=== PATIENT | female | born 1945 | race African-American/Black ===

== ENCOUNTER 2018-11-29 13:03 | Emergency (ER) | payer MEDICARE ==
--- NOTE | 2018-11-29 13:46 | UC ---
UC General HPI - HPI Summary HPI Summary: 73-year-old woman comes in with a chief complaint of fatigue. One week ago she had a fever was diagnosed with the UTI by her primary care doctor and was on sulfa-based drug probably Bactrim for 5 days. She is no longer taking the Bactrim. She had dysuria initially she no longer has any dysuria. Denies any suprapubic pain or flank pain. He does not believe there was a urine culture done on her initial urine. She is been fatigued since that time. She has been itching when she was on the Bactrim. Denies any rash. She's been nauseous not eating much. She reports that her stools are dark colored during this past one week. Has not seen any blood in the stool. She is on Plavix. No complaint of any upper respiratory tract infection symptoms no chest congestion no shortness of breath. No pedal edema. - History of Current Complaint Chief Complaint: UCGeneralIllness Stated Complaint: TIRED/BODY ACHES Time Seen by Provider: 11/29/18 13:22 Pain Intensity: 0 - Allergy/Home Medications Allergies/Adverse Reactions: Allergies Allergy/AdvReac Type Severity Reaction Status Date / Time Sulfa (Sulfonamide Allergy Mild Itching Verified 11/29/18 13:17 Antibiotics) metronidazole [From Flagyl] Allergy Unknown Verified 11/29/18 13:17 Reaction Details tetracycline Allergy Unknown Verified 11/29/18 13:17 Reaction Details Home Medications: Home Medications Atorvastatin Calcium [Lipitor] 40 mg PO DAILY 11/29/18 [History Confirmed ] Estradiol (NF) 0.5 mg PO DAILY 11/29/18 [History Confirmed 11/29/18] PMH/Surg Hx/FS Hx/Imm Hx Previously Healthy: Yes Endocrine History: Dyslipidemia Cardiovascular History: Hypertension GI/ History: Gastroesophageal Reflux Neurological History: TIA - Surgical History Surgical History: Yes Surgery Procedure, Year, and Place: PARTIAL HYSTERECTOMY - Family History Known Family History: Positive: Unknown - Social History Alcohol Use: None Substance Use Type: None Smoking Status (MU): Never Smoked Tobacco Review of Systems All Other Systems Reviewed And Are Negative: Yes Constitutional: Positive: Fever, Fatigue Skin: Positive: Negative. Negative: Rash Eyes: Positive: Negative ENT: Positive: Negative Respiratory: Positive: Negative Cardiovascular: Positive: Negative Gastrointestinal: Positive: Other - SEE HPI Genitourinary: Positive: Dysuria Motor: Positive: Negative Neurovascular: Positive: Negative Musculoskeletal: Positive: Negative Neurological: Positive: Negative Psychological: Positive: Negative Is Patient Immunocompromised?: No Physical Exam Triage Information Reviewed: Yes Appearance: Well-Appearing, No Pain Distress, Well-Nourished Vital Signs: Initial Vital Signs Temp 97.2 F 11/29/18 13:11 Pulse 70 11/29/18 13:11 Resp 16 11/29/18 13:11 BP 125/67 11/29/18 13:11 Pulse Ox 97 11/29/18 13:11 Vital Signs Reviewed: Yes Eye Exam: Normal Eyes: Positive: Conjunctiva Clear ENT: Positive: Pharynx normal Neck: Positive: Supple Respiratory: Positive: Lungs clear, Normal breath sounds, No respiratory distress Cardiovascular: Positive: RRR Abdomen Description: Positive: Nontender, Soft. Negative: CVA Tenderness (R), CVA Tenderness (L) Bowel Sounds: Positive: Present Musculoskeletal: Positive: Strength Intact, ROM Intact, No Edema, Other: - NO CALF TENDERNESS Neurological: Positive: Alert, Muscle Tone Normal Psychological Exam: Normal Psychological: Positive: Age Appropriate Behavior Skin Exam: Normal Diagnostics - EKG Cardiac Rate: Bradycardia - AT 1456 Cardiac Rhythm: Sinus: Normal - 54BPM Ectopy: None ST Segment: Normal Summary of EKG Findings: PROLONGER SC INTERVAL 248 Course/Dx - Course Course Of Treatment: Patient's EKG is sinus bradycardia 54 bpm. It has a prolonged SC interval of 248. I do not see any ischemic changes. Overall the patient's felt fatigued ever since one week ago when she had a fever and was treated for UTI with Bactrim. One week ago she also had an episode of chest pain. Her stools have been dark for this past one week. Different possibilities was heart injury one week ago, GI bleed with anemia, dehydration or other causes of fatigue. Because we cannot get timely labs here and we cannot evaluate with a troponin I recommended further evaluation emergency Department. Patient's son is driving her to the emergency department. - Diagnoses Provider Diagnosis: Fatigue, Chest pain Discharge - Sign-Out/Discharge Documenting (check all that apply): Patient Departure All imaging exams completed and their final reports reviewed: No Studies - Discharge Plan Condition: Stable Disposition: HOME-RECOMMEND TO ED Patient Education Materials: Chest Pain (ED), Fatigue (ED) Referrals: Marce Chavira MD [Primary Care Provider] - Additional Instructions: GO DIRECTLY TO THE EMERGENCY DEPARTMENT FOR FURTHER EVALUATION. - Billing Disposition and Condition Condition: STABLE Disposition: Home-Recommend to ED
[2018-11-29 14:12] VITALS: BP 143/68
== END 2018-11-29 15:00 | disposition home health service (06) ==
LOC: UCEAST 13:03
DX: R53.83 Other fatigue (principal); R07.89 Other chest pain; R50.9 Fever, unspecified; R30.0 Dysuria; R00.1 Bradycardia, unspecified; E78.5 Hyperlipidemia, unspecified; I10 Essential (primary) hypertension; K21.9 Gastro-esophageal reflux disease without esophagitis; Z86.73 Personal history of transient ischemic attack (TIA), and cerebral infarction without residual deficits; Z88.1 Allergy status to other antibiotic agents; Z88.2 Allergy status to sulfonamides
CPT/HCPCS: 81003; 82272; 93005; 99212; G0463

== ENCOUNTER 2018-11-29 15:27 | Emergency (ER) | payer MEDICARE ==
--- NOTE | 2018-11-29 16:14 | ED ---
Complex/Multi-Sys Presentation - HPI Summary HPI Summary: Pt is a 73 y/o F presenting to the ED with a chief complaint of a slow heart rate. She reports associated fatigue onset one week ago, lightheadedness, and a brief 5 minute episode of L anterior chest pain on 11/23/18. She had been taking Tylenol for a fever that is now resolved, and thought the chest pain may have come from that. She went to urgent care today for the weakness where they did an EKG and instructed her to come to the ED for further evaluation. - History Of Current Complaint Chief Complaint: EDWeakness Time Seen by Provider: 11/29/18 15:59 Hx Obtained From: Patient Onset/Duration: Gradual Onset, Lasting Days, Still Present Timing: Constant, Days Severity Currently: Moderate Severity Initially: Mild Aggravating Factor(s): nothing Alleviating Factor(s): nothing Associated Signs And Symptoms: Positive: Weakness, Chest Pain, Other - lightheadedness, fatigue. Negative: Fever - Allergies/Home Medications Allergies/Adverse Reactions: Allergies Allergy/AdvReac Type Severity Reaction Status Date / Time Sulfa (Sulfonamide Allergy Mild Itching Verified 11/29/18 15:36 Antibiotics) metronidazole [From Flagyl] Allergy Unknown Verified 11/29/18 15:36 Reaction Details tetracycline Allergy Unknown Verified 11/29/18 15:36 Reaction Details Home Medications: Home Medications Ascorbic Acid TAB* [Vitamin C TAB*] 1,000 mg PO DAILY 11/29/18 [History Confirmed 11/29/18] Calcium Carbonate/Vitamin D3 [Calcium 600 + Vit D Tablet] 1 each PO DAILY [History Confirmed 11/29/18] Ferrous Gluconate [Iron 27] 240 mg PO DAILY 11/29/18 [History Confirmed 11/29/18 ] Flaxseed Oil [Hannibal-3 Flaxseed Oil] 1,000 mg PO DAILY 11/29/18 [History Confirmed 11/29/18] Multivitamin [Multivitamins] 1 cap PO DAILY 11/29/18 [History Confirmed 11/29/18 ] Hannibal-3 Fatty Acids/Fish Oil [Fish Oil 1,000 mg Softgel] 1 each PO DAILY [History Confirmed 11/29/18] PMH/Surg Hx/FS Hx/Imm Hx Previously Healthy: Yes Endocrine/Hematology History: Denies: Hx Diabetes, Hx Thyroid Disease Cardiovascular History: Reports: Hx Hypertension Denies: Hx Pacemaker/ICD Respiratory History: Denies: Hx Asthma, Hx Chronic Obstructive Pulmonary Disease (COPD) GI History: Denies: Hx Ulcer History: Denies: Hx Renal Disease Sensory History: Denies: Hx Hearing Aid Neurological History: Reports: Hx Transient Ischemic Attacks (TIA) Psychiatric History: Denies: Hx Panic Disorder - Surgical History Surgery Procedure, Year, and Place: PARTIAL HYSTERECTOMY Infectious Disease History: No Infectious Disease History: Denies: Hx Hepatitis, Hx Human Immunodeficiency Virus (HIV), Traveled Outside the [place] in Last 30 Days - Family History Known Family History: Negative: Renal Disease - Social History Alcohol Use: None Hx Substance Use: No Substance Use Type: Reports: None Hx Tobacco Use: No Smoking Status (MU): Never Smoked Tobacco Review of Systems Positive: Fatigue. Negative: Fever Positive: Chest Pain Positive: Weakness All Other Systems Reviewed And Are Negative: Yes Physical Exam - Summary Physical Exam Summary: Appearance: The patient is well-nourished in no acute distress and in no acute pain. Skin: The skin is warm and dry and skin color reflects adequate perfusion. HEENT: The head is normocephalic and atraumatic. The pupils are equal and reactive. The conjunctivae are clear and without drainage. Nares are patent and without drainage. Mouth reveals moist mucous membranes and the throat is without erythema and exudate. The external ears are intact. The ear canals are patent and without drainage. The tympanic membranes are intact. Neck: The neck is supple with full range of motion and non-tender. There are no carotid bruits. There is no neck vein distension. Respiratory: Chest is non-tender. Lungs are clear to auscultation and breath sounds are symmetrical and equal. Cardiovascular: Heart is regular rate and rhythm. There is no murmur or rub auscultated. There is no peripheral edema and pulses are symmetrical and equal. Abdomen: The abdomen is soft and non-tender. There are normal bowel sounds heard in all four quadrants and there is no organomegaly palpated. Musculoskeletal: There is no back tenderness noted. Extremities are non-tender with full range of motion. There is good capillary refill. There is no peripheral edema or calf tenderness elicited. Neurological: Patient is alert and oriented to person, place and time. The patient has symmetrical motor strength in all four extremities. Cranial nerves are grossly intact. Deep tendon reflexes are symmetrical and equal in all four extremities. Psychiatric: The patient has an appropriate affect and does not exhibit any anxiety or depression. Triage Information Reviewed: Yes Vital Signs On Initial Exam: Initial Vitals Temp Pulse Resp BP Pulse Ox 97.9 F 55 16 146/70 100 11/29/18 15:31 11/29/18 15:31 11/29/18 15:31 11/29/18 15:31 11/29/18 15:31 Vital Signs Reviewed: Yes Diagnostics - Vital Signs Vital Signs Temp Pulse Resp BP Pulse Ox 11/29/18 15:31 97.9 F 55 16 146/70 100 - Laboratory Result Diagrams: 11/29/18 16:24 11/29/18 16:24 Lab Statement: Any lab studies that have been ordered have been reviewed, and results considered in the medical decision making process. - Radiology CXR Radiology Interpretation Completed By: Radiologist Summary of Radiographic Findings: No active cardiopulmonary disease is noted. ED physician has reviewed this report. - EKG 1632 Cardiac Rate: Bradycardia - 55 EKG Rhythm: Sinus Rhythm ST Segment: Normal Ectopy: None Complex Multi-Symp Course/Dx Course Of Treatment: Ms. Barrera presented complaining of feeling weak for a couple of days. She really has no other complaint and denies chest pain or shortness of breath. She was nontoxic in appearance with stable vitals when she arrived. She apparently went to the [facility] and was found to be a bit bradycardic and is not taking any beta blockers. She was kept on a monitor here while workup ensued. Her labs were unremarkable as was EKG and chest x-ray aside from the mild bradycardia. I recommended that we discharged her in stable condition and follow up with her PCP. I don't think anything dangerous is happening. - Diagnoses Provider Diagnoses: Weakness Discharge - Sign-Out/Discharge Documenting (check all that apply): Patient Departure Patient Received Moderate/Deep Sedation with Procedure: No - Discharge Plan Condition: Stable Disposition: HOME Referrals: Richie Duran MD [Primary Care Provider] - Additional Instructions: Please follow up with Dr. Duran next week. Return to the ED with any new or worsening symptoms. - Billing Disposition and Condition Condition: STABLE Disposition: Home - Attestation Statements Document Initiated by Scribe: Yes Documenting Scribe: Diana Celaya Provider For Whom Scribe is Documenting (Include Credential): Stone Richards MD. Scribe Attestation: IDiana, scribed for Stone Richards MD. on 11/30/18 at 0906. Scribe Documentation Reviewed: Yes Provider Attestation: The documentation as recorded by the scribe, Diana Celaya accurately reflects the service I personally performed and the decisions made by me, Stone Richards MD. Status of Scribe Document: Viewed
[2018-11-29 16:40] LABS: Hematocrit 38 % (33-41); Hemoglobin 12.3 g/dL (12.0-16.0); INR 1.07 (0.77-1.02); Mean Corpuscular HGB Conc 32 g/dL (31-36); Mean Corpuscular Hemoglobin 22 pg (27-31); Mean Corpuscular Volume 69 fL (80-97); Mean Platelet Volume 9.1 fL (7.4-10.4); Platelet Count 189 10^3/uL (150-450); Red Blood Count 5.54 10^6 /uL (3.70-4.87); Red Cell Distribution Width 15 % (10.5-15); White Blood Count 3.5 10^3/uL (3.5-10.8)
[2018-11-29 16:49] LABS: Albumin 4.1 g/dL (3.2-5.2); Albumin/Globulin Ratio 1.2 (1-3); BUN/Creatinine Ratio 23.8 (8-20); C Reactive Protein 7.12 mg/L (<8.01); Calcium 8.8 mg/dL (8.6-10.3); EGFR African American 84.8 (>60); EGFR Non-African American 70.1 (>60); Globulin 3.5 g/dL (2-4); Magnesium 2.1 mg/dL (1.9-2.7); Potassium 3.7 mmol/L (3.5-5.0); Total Bilirubin 0.5 mg/dL (0.2-1.0); Total Protein 7.6 g/dL (6.4-8.9)
[2018-11-29 17:11] LABS: Lymphocytes % 42 %; Monocytes % 14 %; Neutrophil % 31 %; Variant Lymph % 6 % (0-6)
[2018-11-29 17:12] LABS: Microcytosis 2+
[2018-11-29 17:13] LABS: ABS Neutrophils 1.1 10^3/ul (1.5-7.7); TSH (Thyroid Stimulating Horm) 4.14 mcIU/mL (0.34-5.60)
[2018-11-29 17:15] LABS: ABS Basophils 0.1 10^3/ul (0-0.2); ABS Eosinophils 0.1 10^3/ul (0-0.6)
[2018-11-29 18:50] LABS: Urine Appearance Cloudy; Urine Bilirubin Negative (Negative); Urine Blood Negative (Negative); Urine Color Straw; Urine Glucose Negative (Negative); Urine Ketones Negative (Negative); Urine Nitrite Negative (Negative); Urine Protein Negative (Negative); Urine Specific Gravity 1.003 (1.010-1.030); Urine Urobilinogen Negative (Negative)
[2018-11-29 19:19] VITALS: BP 126/68
== END 2018-11-29 19:18 | disposition home or self-care (01) ==
LOC: ED 15:27
DX: R53.1 Weakness (principal); I10 Essential (primary) hypertension; R53.83 Other fatigue; R07.89 Other chest pain; R50.9 Fever, unspecified; R30.0 Dysuria; R00.1 Bradycardia, unspecified; E78.5 Hyperlipidemia, unspecified; K21.9 Gastro-esophageal reflux disease without esophagitis; Z86.73 Personal history of transient ischemic attack (TIA), and cerebral infarction without residual deficits; Z88.1 Allergy status to other antibiotic agents; Z88.2 Allergy status to sulfonamides
CPT/HCPCS: 36415; 71045; 80053; 81003; 83605; 83735; 84443; 84484; 85025; 85060; 85610; 86140; 93005; 99283

== ENCOUNTER 2023-07-17 20:02 | Inpatient (IN) ==
[2023-07-17] MEDS ORDERED: Lactated Ringers 1000 ml BAG 1,000 ML IV ONE (20:28)
[2023-07-17 20:46] LABS: ABS Lymphocytes 0.3 10^3/uL (1.0-4.8); ABS Monocytes 0.3 10^3/uL (0.0-0.9); ABS Neutrophils 2.8 10^3/uL (1.5-7.6); ABS Nucleated RBC 0.01 10^3/ul; Hematocrit 42.7 % (35-45); Hemoglobin 13.7 g/dL (11.5-14.3); Lymphocyte % 9.9 %; Mean Corpuscular Hemoglobin 21.7 pg (27-33); Mean Corpuscular Hgb Conc 32.1 g/dL (31-36); Mean Corpuscular Volume 67.7 fL (80-97); Mean Platelet Volume 8.4 fL (7.5-11.2); Nucleated Red Blood Cells % 0.2 %/100WBC (0.0-0.8); Platelet Count 229 10^3/uL (150-450); Red Blood Count 6.31 10^6/uL (3.63-4.92); Red Cell Distribution Width 15.2 % (12-17); White Blood Count 3.4 10^3/uL (3.8-11.8)
[2023-07-17 20:54] LABS: Activated Partial Thrombo Time 28.5 seconds (26.0-38.0); INR 1.32 (0.83-1.13)
[2023-07-17 21:03] LABS: Albumin/Globulin Ratio 1.2 (1-3); C Reactive Protein 116.21 mg/L (<8.01); Calcium 8.9 mg/dL (8.6-10.3); Creatinine, Serum 0.84 mg/dL (0.51-0.95); Globulin 3.3 g/dL (2-4); Potassium 2.9 mmol/L (3.5-5.0); Total Bilirubin 0.9 mg/dL (0.2-1.0); Total Protein 7.3 g/dL (6.4-8.9); eGFR CKD-EPI 71.1 (>60)
[2023-07-17] MEDS ORDERED: Iohexol 350 (CONTRAST) 500 ML MDV IV ONE (21:31)
[2023-07-17 22:22] LABS: High Sensitivity Troponin 1 Hr 15 pg/mL (<15)
[2023-07-17] MEDS: KCL 20 MEQ/100 ML IVPREMIX 20 MEQ/100 ML BAG IV SCH (22:50)
[2023-07-17] MEDS ORDERED: Piperacillin/Tazobac 3.375 BAG 3.375 GM/100 ML BAG IV ONE (23:14)
[2023-07-18] MEDS ORDERED: Midazolam 5 mg/5 ml VIAL 1 mg/ml 5 ml VIAL (5 mg) ONE (01:19)
[2023-07-18] MEDS ORDERED: fentaNYL 100 mcg/2 ml 50 MCG/ML VIAL ONE (01:19)
[2023-07-18] MEDS ORDERED: KETAMINE HCL 10 MG/ML 20 ml VIAL (200 MG) ONE (01:19)
[2023-07-18] MEDS ORDERED: Succinylcholine 200 mg VIAL 20 mg/ml 10 ml VIAL (200 mg) ONE (01:21)
[2023-07-18] MEDS ORDERED: Dexamethasone IV 4 MG/ML VIAL 1 ml VIAL ONE (01:22)
[2023-07-18] MEDS ORDERED: Ondansetron 4 mg VIAL 2 MG/ML 2 ml VIAL ONE (01:22)
[2023-07-18 01:46] LABS: Urine Appearance Clear; Urine Bilirubin Negative (Negative); Urine Blood 1+ (Negative); Urine Color Yellow; Urine Glucose Negative (Negative); Urine Ketones Negative (Negative); Urine Nitrite Negative (Negative); Urine Protein Negative (Negative); Urine Specific Gravity 1.044 (1.002-1.030); Urine Urobilinogen Negative (Negative)
[2023-07-18 02:22] LABS: Urine Bacteria 1+ (Absent); Urine Red Blood Cell 1+(3-5/hpf) (Absent); Urine Squamous Epithelial Cell Present (Absent); Urine White Blood Cell Trace(0-5/hpf) (Absent)
[2023-07-18] MEDS ORDERED: Bupivacaine 0.25% SDV 30 ML ONE (02:33)
[2023-07-18] MEDS ORDERED: Rocuronium 50 mg VIAL 10 mg/ml 5 ml VIAL (50 mg) ONE (02:34)
[2023-07-18] MEDS ORDERED: Ondansetron 4 mg VIAL 2 MG/ML 2 ml VIAL IV PRN ×2 (04:50→05:05)
[2023-07-18] MEDS ORDERED: HYDROmorphone 1 MG/1 ML SYRINGE IV PRN (05:05)
[2023-07-18] MEDS ORDERED: Naloxone 0.4 mg VIAL 0.4 mg/ml 1 ml VIAL IV PRN (05:05)
[2023-07-18] MEDS ORDERED: Metoclopramide 5 MG/ML VIAL (10 mg) IV PRN (05:05)
[2023-07-18] MEDS ORDERED: fentaNYL 100 mcg/2 ml 50 MCG/ML VIAL IV PRN (05:05)
[2023-07-18] MEDS: KCL 20 MEQ/100 ML IVPREMIX 20 MEQ/100 ML BAG IV SCH ×4 (05:23→11:20)
[2023-07-18 06:12] LABS: Urine Appearance Clear; Urine Bilirubin Negative (Negative); Urine Blood 2+ (Negative); Urine Color Yellow; Urine Glucose Negative (Negative); Urine Ketones Negative (Negative); Urine Nitrite Negative (Negative); Urine Protein 1+(30 mg/dL) (Negative); Urine Specific Gravity 1.043 (1.002-1.030); Urine Urobilinogen Negative (Negative)
[2023-07-18 06:29] LABS: Urine Bacteria Absent (Absent); Urine Granular Casts Present (Absent); Urine Red Blood Cell 3+(>10/hpf) (Absent); Urine Renal Epithelial Cells Present (Absent); Urine Squamous Epithelial Cell Present (Absent); Urine White Blood Cell Trace(0-5/hpf) (Absent)
[2023-07-18] MEDS ORDERED: HYDROmorphone 0.5 MG/0.5 ML SYRINGE IV SLOW PU PRN (07:10)
[2023-07-18] MEDS ORDERED: HYDROmorphone 1 MG/1 ML SYRINGE IV SLOW PU PRN (07:10)
[2023-07-18] MEDS: Lactated Ringers 1000 ml BAG 1,000 ML IV SCH (07:50)
[2023-07-18] MEDS: Acetaminophen IV 1 GM/100ML 1,000 MG/100 ML BAG IV SCH ×3 (08:20→17:25)
[2023-07-18] MEDS: Famotidine IV 10 MG/ML 2 ml VIAL (20 mg) IV SLOW PU SCH ×2 (08:23→20:13)
[2023-07-18] MEDS ORDERED: ZOSYN 3.375 GM x ONE DOSE over 30 miuntes IV (09:00)
[2023-07-18] MEDS: Piperacillin/Tazobac 3.375 BAG 3.375 GM/100 ML BAG IV SCH ×2 (13:42→21:59)
[2023-07-18] MEDS ORDERED: Heparin 5000 UNITS/ML 1 mL VIAL SUBCUT SCH (14:00)
[2023-07-19] MEDS: Acetaminophen IV 1 GM/100ML 1,000 MG/100 ML BAG IV SCH ×5 (00:28→22:36)
[2023-07-19] MEDS: Lactated Ringers 1000 ml BAG 1,000 ML IV SCH ×2 (05:18→05:23)
[2023-07-19] MEDS: Piperacillin/Tazobac 3.375 BAG 3.375 GM/100 ML BAG IV SCH ×3 (07:05→22:34)
[2023-07-19 07:25] LABS: Calcium 8.2 mg/dL (8.6-10.3); Creatinine, Serum 0.97 mg/dL (0.51-0.95); Potassium 3.7 mmol/L (3.5-5.0); eGFR CKD-EPI 59.8 (>60)
[2023-07-19 07:26] LABS: ABS Lymphocytes 0.6 10^3/uL (1.0-4.8); ABS Monocytes 0.5 10^3/uL (0.0-0.9); Hematocrit 29.1 % (35-45); Hemoglobin 9.5 g/dL (11.5-14.3); Lymphocyte % 6.2 %; Mean Corpuscular Hemoglobin 22.3 pg (27-33); Mean Corpuscular Hgb Conc 32.9 g/dL (31-36); Mean Corpuscular Volume 67.9 fL (80-97); Mean Platelet Volume 9.2 fL (7.5-11.2); Platelet Count 148 10^3/uL (150-450); Red Blood Count 4.28 10^6/uL (3.63-4.92); Red Cell Distribution Width 15.5 % (12-17); White Blood Count 9.2 10^3/uL (3.8-11.8)
[2023-07-19] MEDS: Famotidine IV 10 MG/ML 2 ml VIAL (20 mg) IV SLOW PU SCH (09:52)
[2023-07-20] MEDS: Acetaminophen IV 1 GM/100ML 1,000 MG/100 ML BAG IV SCH ×2 (05:56→09:31)
[2023-07-20] MEDS: Piperacillin/Tazobac 3.375 BAG 3.375 GM/100 ML BAG IV SCH (06:20)
[2023-07-20 06:26] LABS: ABS Lymphocytes 0.9 10^3/uL (1.0-4.8); ABS Monocytes 0.6 10^3/uL (0.0-0.9); ABS Neutrophils 7.3 10^3/uL (1.5-7.6); Eosinophil % 0.4 %; Hematocrit 27.7 % (35-45); Hemoglobin 9.1 g/dL (11.5-14.3); Lymphocyte % 9.8 %; Mean Corpuscular Hemoglobin 21.9 pg (27-33); Mean Corpuscular Hgb Conc 32.8 g/dL (31-36); Mean Corpuscular Volume 66.7 fL (80-97); Mean Platelet Volume 9.3 fL (7.5-11.2); Platelet Count 168 10^3/uL (150-450); Red Blood Count 4.15 10^6/uL (3.63-4.92); Red Cell Distribution Width 15.5 % (12-17); White Blood Count 8.8 10^3/uL (3.8-11.8)
[2023-07-20 06:35] LABS: Calcium 8.4 mg/dL (8.6-10.3); Creatinine, Serum 0.91 mg/dL (0.51-0.95); Potassium 3.2 mmol/L (3.5-5.0); eGFR CKD-EPI 64.6 (>60)
[2023-07-20 06:41] VITALS: BP 156/63
[2023-07-20] MEDS ORDERED: Potassium Chlor 20 meq TAB.ER PO ONE (08:54)
[2023-07-20] MEDS ORDERED: Venlafaxine XR 75 mg PO SCH (09:00)
== END 2023-07-20 11:37 | disposition home or self-care (01) | DRG 330 ==
LOC: ED 20:02 → SDS 07-18 01:38 → SSU 07-18 01:38 → OBSVTOIN 07-18 07:53
PROVIDERS: ADMIT Surgery; ATTEND Surgery

== ENCOUNTER 2023-08-01 11:46 | Inpatient (IN) ==
[2023-08-01] MEDS ORDERED: Iohexol 350 (CONTRAST) 500 ML MDV IV ONE (13:35)
[2023-08-01] MEDS ORDERED: Acetaminophen IV 1 GM/100ML 1,000 MG/100 ML BAG IV PRN (16:18)
[2023-08-01] MEDS ORDERED: Morphine 2 MG/ML SYRINGE IV PRN (16:20)
[2023-08-01] MEDS ORDERED: Lactated Ringers 1000 ml BAG 1,000 ML IV SCH (17:00)
[2023-08-01] MEDS: Heparin 5000 UNITS/ML 1 mL VIAL SUBCUT SCH (23:24)
[2023-08-02] MEDS: Heparin 5000 UNITS/ML 1 mL VIAL SUBCUT SCH ×3 (06:26→21:49)
[2023-08-02 06:54] LABS: ABS Basophils 0.1 10^3/uL (0.0-0.1); ABS Eosinophils 0.1 10^3/uL (0.0-0.5); ABS Lymphocytes 1.5 10^3/uL (1.0-4.8); ABS Monocytes 0.6 10^3/uL (0.0-0.9); ABS Neutrophils 3.6 10^3/uL (1.5-7.6); Eosinophil % 1.3 %; Hematocrit 28.9 % (35-45); Hemoglobin 9.2 g/dL (11.5-14.3); Lymphocyte % 25.7 %; Mean Corpuscular Hemoglobin 21.5 pg (27-33); Mean Corpuscular Hgb Conc 31.9 g/dL (31-36); Mean Corpuscular Volume 67.4 fL (80-97); Mean Platelet Volume 8.5 fL (7.5-11.2); Nucleated Red Blood Cells % 0.1 %/100WBC (0.0-0.8); Platelet Count 427 10^3/uL (150-450); Red Blood Count 4.28 10^6/uL (3.63-4.92); Red Cell Distribution Width 14.5 % (12-17)
[2023-08-02 07:04] LABS: Albumin 3.3 g/dL (3.2-5.2); Albumin/Globulin Ratio 0.9 (1-3); Calcium 8.5 mg/dL (8.6-10.3); Creatinine, Serum 0.74 mg/dL (0.51-0.95); Globulin 3.6 g/dL (2-4); Potassium 2.8 mmol/L (3.5-5.0); Total Bilirubin 0.5 mg/dL (0.2-1.0); Total Protein 6.9 g/dL (6.4-8.9); eGFR CKD-EPI 82.8 (>60)
[2023-08-02] MEDS: KCL 20 MEQ/100 ML IVPREMIX 20 MEQ/100 ML BAG IV SCH ×3 (09:37→15:31)
[2023-08-02] MEDS: D5W 1/2 NS 40 Meq KCL 1000 ml 1,000 ML IV SCH ×2 (09:50→21:16)
[2023-08-03] MEDS: Heparin 5000 UNITS/ML 1 mL VIAL SUBCUT SCH ×3 (06:23→22:23)
[2023-08-03] MEDS: D5W 1/2 NS 40 Meq KCL 1000 ml 1,000 ML IV SCH (07:21)
[2023-08-03 13:36] LABS: Albumin/Globulin Ratio 1.1 (1-3); Calcium 8.5 mg/dL (8.6-10.3); Creatinine, Serum 0.63 mg/dL (0.51-0.95); Globulin 2.8 g/dL (2-4); Magnesium 1.7 mg/dL (1.9-2.7); Phosphorus 1.8 mg/dL (2.5-5.0); Potassium 4.7 mmol/L (3.5-5.0); Total Bilirubin 0.3 mg/dL (0.2-1.0); Total Protein 5.8 g/dL (6.4-8.9); eGFR CKD-EPI 90.7 (>60)
[2023-08-03] MEDS ORDERED: Magnesium Sulfate 2 gm BAG 2 GM/50 ML BAG IVPB ONE (15:11)
[2023-08-03] MEDS ORDERED: Potassium Phosphate IV 10 MMOL in NS 0.9% 250 ml 250 ML IVPB ONE (16:45)
[2023-08-03] MEDS: TPN 24 HR with Dextrose 50% Water 500 ML, Amino Acid Infusion 10% 850 ML, Sterile Water... CENT\\PICC SCH (17:35)
[2023-08-04] MEDS: Heparin 5000 UNITS/ML 1 mL VIAL SUBCUT SCH ×3 (05:56→22:00)
[2023-08-04 07:48] LABS: Calcium 8.7 mg/dL (8.6-10.3); Creatinine, Serum 0.64 mg/dL (0.51-0.95); Globulin 2.9 g/dL (2-4); Phosphorus 3.4 mg/dL (2.5-5.0); Potassium 4.7 mmol/L (3.5-5.0); Total Bilirubin 0.2 mg/dL (0.2-1.0); Total Protein 5.9 g/dL (6.4-8.9); eGFR CKD-EPI 90.4 (>60)
[2023-08-04] MEDS: TPN 24 HR with Dextrose 50% Water 500 ML, Amino Acid Infusion 10% 850 ML, Sterile Water... CENT\\PICC SCH (17:43)
[2023-08-05] MEDS: Heparin 5000 UNITS/ML 1 mL VIAL SUBCUT SCH ×3 (06:39→21:55)
[2023-08-05 07:32] LABS: Albumin 3.2 g/dL (3.2-5.2); Albumin/Globulin Ratio 0.9 (1-3); Calcium 9.2 mg/dL (8.6-10.3); Creatinine, Serum 0.67 mg/dL (0.51-0.95); Globulin 3.6 g/dL (2-4); Magnesium 1.8 mg/dL (1.9-2.7); Phosphorus 3.9 mg/dL (2.5-5.0); Potassium 4.7 mmol/L (3.5-5.0); Total Bilirubin 0.3 mg/dL (0.2-1.0); Total Protein 6.8 g/dL (6.4-8.9); eGFR CKD-EPI 89.4 (>60)
[2023-08-05] MEDS: TPN 24 HR with Dextrose 50% Water 500 ML, Amino Acid Infusion 10% 850 ML, Sterile Water... CENT\\PICC SCH (17:11)
[2023-08-06] MEDS: Heparin 5000 UNITS/ML 1 mL VIAL SUBCUT SCH ×3 (06:18→21:36)
[2023-08-06 06:52] LABS: Calcium 9.1 mg/dL (8.6-10.3); Creatinine, Serum 0.63 mg/dL (0.51-0.95); Phosphorus 3.8 mg/dL (2.5-5.0); Potassium 4.6 mmol/L (3.5-5.0); eGFR CKD-EPI 90.7 (>60)
[2023-08-06] MEDS: TPN 24 HR with Dextrose 50% Water 500 ML, Amino Acid Infusion 10% 850 ML, Sterile Water... CENT\\PICC SCH (16:12)
[2023-08-07] MEDS: Heparin 5000 UNITS/ML 1 mL VIAL SUBCUT SCH ×3 (05:20→22:34)
[2023-08-07 05:49] LABS: Calcium 8.9 mg/dL (8.6-10.3); Creatinine, Serum 0.65 mg/dL (0.51-0.95); Magnesium 2.1 mg/dL (1.9-2.7); Potassium 4.6 mmol/L (3.5-5.0); eGFR CKD-EPI 90.1 (>60)
[2023-08-07 13:02] LABS: Calcium 8.9 mg/dL (8.6-10.3); Creatinine, Serum 0.64 mg/dL (0.51-0.95); Globulin 3.1 g/dL (2-4); Magnesium 2.1 mg/dL (1.9-2.7); Phosphorus 3.4 mg/dL (2.5-5.0); Potassium 4.8 mmol/L (3.5-5.0); Total Bilirubin 0.2 mg/dL (0.2-1.0); Total Protein 6.1 g/dL (6.4-8.9); eGFR CKD-EPI 90.4 (>60)
[2023-08-07] MEDS: TPN 24 HR with Dextrose 50% Water 500 ML, Amino Acid Infusion 10% 850 ML, Sterile Water... CENT\\PICC SCH (16:57)
[2023-08-07] MEDS: Ondansetron 4 mg VIAL 2 MG/ML 2 ml VIAL IV PRN (16:57)
[2023-08-08] MEDS: Heparin 5000 UNITS/ML 1 mL VIAL SUBCUT SCH ×3 (06:38→21:55)
[2023-08-08] MEDS: Ondansetron 4 mg VIAL 2 MG/ML 2 ml VIAL IV PRN (18:35)
[2023-08-09] MEDS: Heparin 5000 UNITS/ML 1 mL VIAL SUBCUT SCH ×3 (05:25→21:50)
[2023-08-09] MEDS: Polyethylene Glycol 3350 17 GM PACKET PO SCH ×2 (14:27→15:16)
[2023-08-10] MEDS: Heparin 5000 UNITS/ML 1 mL VIAL SUBCUT SCH (05:17)
[2023-08-10 05:45] VITALS: BP 115/63
[2023-08-10] MEDS: Polyethylene Glycol 3350 17 GM PACKET PO SCH (09:23)
== END 2023-08-10 10:35 | disposition home or self-care (01) | DRG 389 ==
LOC: IMG 11:46 → SSU 11:46
PROVIDERS: ADMIT Surgery; ATTEND Surgery